=== PATIENT | male | born 1960 | race Caucasian/White ===

== ENCOUNTER → 2017-05-18 | Outpatient (CLI) | payer MEDICARE, BC ==
[~2017-05-18] MED LIST: APRESOLINE25 MG PO; BYSTOLIC10 MG PO; HYDROCHLOROTH12.5 M1 PO; LIPITOR40 MG PO; MUCINEX600 MG PO; NICODERM / HABIT7 MG TRANS; NITROSTAT0.4 MG SL; NORCO 5-325 TA1 EACH PO; NORVASC10 MG PO; PLAVIX75 MG PO; PROTONIX40 MG PO; PROVIGIL200 MG PO; TYLENOL325 MG PO; ZESTRIL40 MG PO
--- NOTE | ~2017-05-18 | ENPV ---
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 The right proximal internal carotid artery has near critical, 75-80%, stenosis by heterogeneous/calcific plaque. Bilateral vertebral arteries are antegrade. Preliminary reported to @ 1330. Advise CTA and vascular surgery eval Procedure Type of Study: Cerebral:Carotid, Carotid Doppler Bilateral. Indications for Study:Peripheral vascular disease, Carotid disease and Carotid Bruit. Appropriate Use Criteria:7 Patient Status:Routine. Study Location:[facility]. Technical Quality:Adequate visualization. - Preliminary reported to:Dr. Vasquez @1330. Velocities are measured in cm/s ; Diameters are measured in cm Carotid Right Measurements Carotid Left Measurements + +--------+--------+ + + + +--------+ --------+ + + !Location !PSV !EDV !Angle !%Stenosis ! !Location !PSV ! EDV !Angle !%Stenosis ! + +--------+--------+ + + + +--------+ --------+ + + !Prox CCA !108 !28 !60 ! ! !Prox CCA !71 ! 10 !60 ! ! + +--------+--------+ + + + +--------+ --------+ + + !Dist CCA !99 !38 !60 ! ! !Dist CCA !42 ! 9 !60 ! ! + +--------+--------+ + + + +--------+ --------+ + + !Prox ICA !204 !89 !60 !75-80% ! !Prox ICA !0 ! 0 ! !Occlusion ! + +--------+--------+ + + + +--------+ --------+ + + !Dist ICA !169 !55 !48 ! ! !Prox ECA !84 ! !60 ! ! + +--------+--------+ + + + +--------+ --------+ + + !Prox ECA !105 ! !60 ! ! !Vertebral !84 ! !60 ! ! + +--------+--------+ + + + +--------+ --------+ + + !Vertebral !42 !15 !54 ! ! !Subclavian !176 ! ! ! ! + +--------+--------+ + + + +--------+ --------+ + + !Subclavian !167 ! ! ! ! + +--------+--------+ + + - There is antegrade vertebral flow noted on the right side. - There is antegrade verte bral flow noted on the left side. - Add'l Measurements:ICAPSV/CCAPSV 1.89.ICAEDV/CCAEDV 3.19. - Add'l Measurements:ICAPS V/CCAPSV 0.ICAEDV/CCAEDV 0. Signature dtt: JESSICA VASQUEZ dtd: 05/18/17 1256 Physician Self Edit
== END | disposition disaster alternative care site (69) ==
LOC: GCAR 12:53
DX: I25.10 Atherosclerotic heart disease of native coronary artery without angina pectoris (principal); I65.23 Occlusion and stenosis of bilateral carotid arteries; I73.9 Peripheral vascular disease, unspecified; Z88.1 Allergy status to other antibiotic agents; Z88.8 Allergy status to other drugs, medicaments and biological substances

== ENCOUNTER → 2017-05-24 | Outpatient (CLI) | payer MEDICARE, BC | END | disposition disaster alternative care site (69) | LOC: GRAD 10:46 | DX: I65.29 Occlusion and stenosis of unspecified carotid artery (principal); I65.23 Occlusion and stenosis of bilateral carotid arteries | CPT/HCPCS: J0690; J1644; J2720 ==